=== PATIENT | male | born 1975 | race Caucasian/White ===

== ENCOUNTER 2016-11-05 20:35 | Emergency (ER) | payer MEDICAID ==
[~2016-11-05 20:35] MED LIST: Acetaminophen/HYDROcodone 325-5 MG Tab PO ONE; Amoxicillin/Clavulanate K 875-125 MG Tab PO ONE
[2016-11-05 20:41] VITALS: BP 158/97
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
[2016-11-05] MEDS ORDERED: Take Home: Acetaminophen/HYDROcodone 325-5 MG, 2 Tab Pack PO ONE (21:22)
[2016-11-05] MEDS ORDERED: Take Home: Amoxicillin/Clavulanate K 875-125 MG Tab, 2 Tab Pack PO ONE (21:22)
== END 2016-11-05 21:39 | disposition home or self-care (01) ==
LOC: CC.ED 20:35
DX: K04.7 Periapical abscess without sinus (principal); I10 Essential (primary) hypertension; F17.210 Nicotine dependence, cigarettes, uncomplicated; Z79.899 Other long term (current) drug therapy
CPT/HCPCS: 99282; A9270-GY

== ENCOUNTER 2018-08-14 15:24 | Emergency (ER) | payer MEDICAID ==
[2018-08-14 15:43] VITALS: BP 145/90
[2018-08-14 15:54] LABS: CHLORIDE,CL 104 mEq/L (98-106); SODIUM,NA 139 mEq/L (136-145)
[2018-08-14] MEDS ORDERED: Iopamidol 612 MG/ML 100 ML Bottle IVPUSH ONE (15:56)
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
[2018-08-14] MEDS ORDERED: Lidocaine 1% 20 ML MDV INJECT ONE (17:11)
[2018-08-14] MEDS ORDERED: cefTRIAXone 1 GM Vial IM ONE (17:11)
[2018-08-14] MEDS ORDERED: cefTRIAXone 1 GM Vial IVPUSH ONE (17:26)
== END 2018-08-14 18:10 | disposition home or self-care (01) ==
LOC: CC.ED 15:24
DX: K04.7 Periapical abscess without sinus (principal); L03.211 Cellulitis of face; I10 Essential (primary) hypertension; F17.210 Nicotine dependence, cigarettes, uncomplicated
CPT/HCPCS: 36415; 70487; 80048; 85025; 86140; 96374; 99283-25; J0696; Q9967

== ENCOUNTER 2018-10-15 17:25 | Emergency (ER) | payer MEDICAID ==
[2018-10-15] MEDS ORDERED: Acetaminophen/HYDROcodone 325-5 MG Tab PO ONE (17:26)
[2018-10-15 17:37] VITALS: BP 144/90; PULSE 84
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
[2018-10-15] MEDS ORDERED: Take Home: Acetaminophen/HYDROcodone 325-5 MG, 2 Tab Pack PO ONE (18:10)
== END 2018-10-15 18:15 | disposition home or self-care (01) ==
LOC: CC.ED 17:25
DX: S62.334A Displaced fracture of neck of fourth metacarpal bone, right hand, initial encounter for closed fracture (principal); I10 Essential (primary) hypertension; W22.8XXA Striking against or struck by other objects, initial encounter
CPT/HCPCS: 29125; 73130; 99283; A9270

== ENCOUNTER 2019-11-23 08:58 | Emergency (ER) | payer MEDICAID ==
[2019-11-23] MEDS ORDERED: Morphine 4 MG/ML VIAL IVPUSH ONE ×2 (09:11→11:56)
[2019-11-23] MEDS ORDERED: Sodium Chloride 0.9% 1,000 ML IV ONE (09:11)
[2019-11-23] MEDS ORDERED: Ondansetron 4 MG/2 ML SDV IVPUSH STA ×2 (09:12→11:56)
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
[2019-11-23 09:55] LABS: CHLORIDE,CL 105 mEq/L (98-106); SODIUM,NA 143 mEq/L (136-145)
[2019-11-23 09:56] VITALS: BP 139/88; PULSE 80
[2019-11-23] MEDS ORDERED: Tamsulosin 0.4 MG Cap.ER PO ONE (11:19)
[2019-11-23] MEDS ORDERED: Sodium Chloride 0.9% 1,000 ML IV SCH (11:30)
[2019-11-23] MEDS ORDERED: Ketorolac 30 MG/ML SDV IVPUSH ONE (11:53)
== END 2019-11-23 12:27 | disposition home or self-care (01) ==
LOC: CC.ED 08:58
DX: N13.2 Hydronephrosis with renal and ureteral calculous obstruction (principal); N28.9 Disorder of kidney and ureter, unspecified; I10 Essential (primary) hypertension; F17.210 Nicotine dependence, cigarettes, uncomplicated
CPT/HCPCS: 36415; 74176; 80053; 80305; 81001; 82150; 82550; 83615; 83690; 84484; 85025; 93005; 96361; 96374; 96375; 99285; A9270; J1885; J2270; J2405; J7030

== ENCOUNTER 2019-12-18 07:22 | Emergency (ER) | payer MEDICAID ==
[2019-12-18 08:08] VITALS: BP 152/98; PULSE 81
[2019-12-18 08:30] LABS: CHLORIDE,CL 102 mEq/L (98-106); SODIUM,NA 137 mEq/L (136-145)
[2019-12-18] MEDS ORDERED: Ketorolac 60 MG/2 ML SDV IM ONE (09:23)
[2019-12-18] MEDS ORDERED: Orphenadrine 60 MG/2 ML Inj IM ONE (09:23)
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
== END 2019-12-18 10:35 | disposition home or self-care (01) ==
LOC: CC.ED 07:22
DX: G43.909 Migraine, unspecified, not intractable, without status migrainosus (principal); I10 Essential (primary) hypertension; D68.9 Coagulation defect, unspecified; F17.210 Nicotine dependence, cigarettes, uncomplicated; Z20.828 Contact with and (suspected) exposure to other viral communicable diseases
CPT/HCPCS: 36415; 70450; 71046; 80053; 82150; 83690; 84484; 85025; 86140; 93005; 96372; 99284-25; J1885; J2360; U0002

== ENCOUNTER 2020-01-11 00:03 | Emergency (ER) | payer MEDICAID, OTHER ==
[2020-01-11] MEDS ORDERED: Ketorolac 10 MG Tab PO ONE (00:04)
[2020-01-11] MEDS ORDERED: Ketorolac 30 MG/ML SDV IVPUSH ONE (00:05)
[2020-01-11] MEDS ORDERED: Ondansetron 4 MG/2 ML SDV IVPUSH STA (00:10)
[2020-01-11 00:23] VITALS: PULSE 82
[2020-01-11] MEDS ORDERED: Sodium Chloride 0.9% 1,000 ML IV SCH (00:30)
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
[2020-01-11 01:20] VITALS: BP 140/98
[2020-01-11] MEDS ORDERED: Tamsulosin 0.4 MG Cap.ER PO ONE (02:00)
[2020-01-11] MEDS ORDERED: Take Home: Ketorolac 10 MG Tab, 4 Tab Pack PO ONE (02:01)
== END 2020-01-11 02:25 | disposition home or self-care (01) ==
LOC: CC.ED 00:03
DX: N13.2 Hydronephrosis with renal and ureteral calculous obstruction (principal); I10 Essential (primary) hypertension; F17.210 Nicotine dependence, cigarettes, uncomplicated; Z79.899 Other long term (current) drug therapy
CPT/HCPCS: 36415; 74176; 80053; 81001; 82150; 83690; 85025; 86140; 96374; 96375; 99284-25; A9270-GY; J1885; J2405; J7030

== ENCOUNTER 2020-02-15 13:51 | Emergency (ER) | payer MEDICAID ==
[2020-02-15 13:58] VITALS: BP 118/72; PULSE 82
[2020-02-15] MEDS: Ketorolac 60 MG/2 ML SDV IM ONE (14:11)
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
[2020-02-15 15:24] LABS: CHLORIDE,CL 103 mEq/L (98-106); SODIUM,NA 138 mEq/L (136-145)
[2020-02-15] MEDS: Sodium Chloride 0.9% 1,000 ML IV SCH (15:56)
== END 2020-02-15 17:08 | disposition home or self-care (01) ==
LOC: CC.ED 13:59
DX: M62.82 Rhabdomyolysis (principal); I10 Essential (primary) hypertension; F17.200 Nicotine dependence, unspecified, uncomplicated; Z79.899 Other long term (current) drug therapy
CPT/HCPCS: 36415; 80053; 80305-QW; 81001; 82550; 83735; 85025; 85652; 86140; 96372; 96374; 99283-25; J1885; J3360; J7030